=== PATIENT | male | born 1985 | race African-American/Black ===

== ENCOUNTER 2018-07-23 23:35 | Emergency (ER) | payer SELFPAY ==
[2018-07-24] MEDS ORDERED: Acetaminophen 500 MG TAB ONE (00:04)
== END 2018-07-24 00:09 | disposition home or self-care (01) ==
LOC: ERS 23:35
DX: K03.81 Cracked tooth (principal); F17.210 Nicotine dependence, cigarettes, uncomplicated
CPT/HCPCS: 99406

== ENCOUNTER 2023-11-28 18:04 | Emergency (ER) | payer SELFPAY ==
[2023-11-28] MEDS ORDERED: Ibuprofen 800 MG TAB ONE (18:41)
[2023-11-28] MEDS ORDERED: HYDROcodone/Acetaminophen 5/325 mg Tablet ONE (18:42)
== END 2023-11-28 19:05 | disposition home or self-care (01) ==
LOC: ERS 18:04
DX: K02.9 Dental caries, unspecified (principal); K04.7 Periapical abscess without sinus; F17.210 Nicotine dependence, cigarettes, uncomplicated
CPT/HCPCS: 99282